=== PATIENT | male | born 1995 ===

== ENCOUNTER 2021-08-28 11:53 | Emergency (ER) | payer SELFPAY ==
[~2021-08-28] VITALS: Ht 165.1 cm; Wt 58.2 kg
[2021-08-28 12:00] VITALS: BP 134/92; PULSE 87; TEMP 98.2
[2021-08-28] MEDS ORDERED: CEPHALEXIN500 M1 PO (12:27)
[2021-08-28] MEDS ORDERED: NORCO 325 MG-51 TAB PO (13:09)
== END 2021-08-28 13:28 | disposition home or self-care (01) ==
LOC: COL.ER 11:53
DX: S91.131A Puncture wound without foreign body of right great toe without damage to nail, initial encounter (principal); Z23 Encounter for immunization; W29.4XXA Contact with nail gun, initial encounter